=== PATIENT | female | born 1960 | race American Indian/Alaskan Native ===

== ENCOUNTER 2018-08-04 13:10 | Emergency (ER) | payer BC ==
[2018-08-04] MEDS ORDERED: NACL 0.9% 1000 ML 1,000 ML IV ONE (13:21)
[2018-08-04 14:19] LABS: Basophils # (Auto) 0.1 K/mm3 (0.0-0.1); Basophils % (Auto) 0.9 % (0.0-1.8); Eosinophils # (Auto) 0.1 K/mm3 (0.0-0.4); Hematocrit 38.5 % (30.3-42.9); Hemoglobin 12.4 gm/dl (10.1-14.3); Lymphocytes # (Auto) 2.2 K/mm3 (1.2-5.4); Lymphocytes % (Auto) 23.4 % (13.4-35.0); Mean Corpuscular HGB Conc 32 % (30-34); Mean Corpuscular Hemoglobin 28 pg (28-32); Mean Corpuscular Volume 88 fl (79-97); Monocytes # (Auto) 0.6 K/mm3 (0.0-0.8); Platelet Count 296 K/mm3 (140-440); Red Blood Count 4.39 M/mm3 (3.65-5.03); Red Cell Distribution Width 13.9 % (13.2-15.2)
[2018-08-04 14:27] LABS: INR 0.97 (0.87-1.13)
[2018-08-04 14:28] LABS: Partial Thromboplastin Time 33.7 Sec. (24.2-36.6)
[2018-08-04 14:29] LABS: Alanine Aminotransferase 14 units/L (7-56); Albumin 4.2 g/dL (3.9-5); BUN/Creatinine Ratio 13; Blood Urea Nitrogen 12 mg/dL (7-17); Calcium 9.1 mg/dL (8.4-10.2); Hemolysis Index 6; Lipase 34 units/L (13-60)
[2018-08-04] MEDS ORDERED: ULTRAM PO ONE (15:13)
--- NOTE | 2018-08-04 15:41 | Emergency Department Report ---
HPI - General Chief Complaint: GI Bleed Time Seen by Provider: 08/04/18 14:39 - HPI HPI: 58-year-old female presents to the emergency department with a 2-3 day history of some lower abdominal discomfort with some radiation towards the back. The patient also complains of some left hip pain but this is more of a chronic issue for her. She has been seen at [facility] for her hip pain in the past and has received cortisone injections. The patient has some nausea without vomiting and some dysuria. She's been having some diarrhea and therefore took some Pepto-Bismol on Thursday. The next day she started noticing some blackish stools. She denies any fever, vaginal discharge , chest pain or shortness of breath. She denies any significant past medical history. No recent travel or sick contacts at home. ED Past Medical Hx - Past Medical History Previous Medical History?: No - Surgical History Past Surgical History?: Yes Additional Surgical History: anal vaginal fistula repair. tubal ligation. bunion removal - Social History Smoking Status: Never Smoker Substance Use Type: None - Medications Home Medications: Home Medications Medication Instructions Recorded Confirmed Last Taken Type Ibuprofen [Motrin 800 MG tab] 800 mg PO Q12H PRN 08/04/18 08/04/18 Unknown History Sertraline [Zoloft] 50 mg PO DAILY 08/04/18 08/04/18 Unknown History Vit D3-Vit K/Berberine/Hops 1 each PO DAILY 08/04/18 08/04/18 Unknown History [Ostera Tablet] ED Review of Systems ROS: Stated complaint: ABD PAIN Other details as noted in HPI Comment: All other systems reviewed and negative Constitutional: denies: chills, fever Eyes: denies: eye pain, eye discharge, vision change ENT: denies: ear pain, throat pain Respiratory: denies: cough, shortness of breath, wheezing Cardiovascular: denies: chest pain, palpitations Gastrointestinal: abdominal pain, nausea, other (rectal bleeding). denies: vomiting Genitourinary: denies: urgency, dysuria, discharge Musculoskeletal: arthralgia. denies: back pain Skin: denies: rash, lesions Neurological: denies: headache, weakness Physical Exam - Physical Exam Vital Signs: Vital Signs 08/04/18 13:17 Temperature 99.0 F Pulse Rate 98 H Respiratory 18 Rate Blood Pressure 122/78 O2 Sat by Pulse 97 Oximetry Physical Exam: GENERAL: The patient is well-developed well-nourished. HENT: Normocephalic. Atraumatic. Patient has moist mucous membranes. EYES: Extraocular motions are intact. Pupils equal reactive to light bilaterally. NECK: Supple. trachea is midline CHEST/LUNGS: Clear to auscultation. There is no respiratory distress noted. HEART/CARDIOVASCULAR: Regular. There is no tachycardia. There is no murmur. ABDOMEN: Abdomen is soft. lower abdominal tenderness to palpation. no guarding. Patient has normal bowel sounds. There is no abdominal distention. SKIN: Skin is warm and dry. NEURO: The patient is awake, alert, and oriented. The patient is cooperative. The patient has no focal neurologic deficits. The patient has normal speech. MUSCULOSKELETAL: Mild left hip tenderness to palpation. No deformity. There is no limitation range of motion. There is no evidence of acute injury. RECTAL: There is a small nonthrombosed external hemorrhoid. No gross blood. Negative stool on guaiac testing. ED Course Vital Signs 08/04/18 13:17 Temperature 99.0 F Pulse Rate 98 H Respiratory 18 Rate Blood Pressure 122/78 O2 Sat by Pulse 97 Oximetry ED Medical Decision Making - Lab Data Result diagrams: 08/04/18 13:30 08/04/18 13:30 - Radiology Data Radiology results: report reviewed, image reviewed interpreted by me: X-ray left hip does not show any fracture, dislocation or any acute process. EXAM: CT ABDOMEN PELVIS W CON HISTORY: Abd pain TECHNIQUE: Following IV administration of 100 cc of Omnipaque 300 axial helical imaging was performed through the abdomen and pelvis with sagittal and coronal reformatted images obtained. Delayed axial helical imaging was also performed through the abdomen and pelvis. Comparison: None FINDINGS: The lung bases are without infiltrate, pneumothorax or pleural fluid collection. The heart appears to be normal size. The liver, spleen, pancreas, kidneys and adrenal glands are normal in appearance. The gallbladder is moderately distended and is unremarkable in appearance. There is colonic diverticulosis with increased thickness of the wall of the distal descending and proximal sigmoid colon with moderate surrounding inflammatory change consistent with the appearance of diverticulitis. There appears to be a small amount of fluid in the left paracolic gutter. There is no evidence of pneumoperitoneum. There is a moderate amount of stool in the ascending colon. The abdominal aorta is normal caliber. There is atherosclerotic vascular calcification of the aorta and iliac arteries. There is no evidence of pathologic intra-abdominal adenopathy by CT size criteria. The urinary bladder is mildly distended and unremarkable in appearance. The uterus and adnexal are unremarkable in appearance. The bony structures are notable for degenerative facet change in the lower lumbar spine. IMPRESSION: 1. Findings consistent with the appearance of diverticulitis of the distal descending and proximal sigmoid colon. 2. Small amount of free fluid in the left paracolic gutter. 3. Spondylitic change lower lumbar spine. 4. Atherosclerotic vascular calcification aorta and iliac arteries. Transcribed By: ED Dictated By: BEVERLY MASSEY MD Electronically Authenticated By: BEVERLY MASSEY MD Signed Date/Time: 08/04/181801 - Medical Decision Making Patient presents with a complaint of lower abdominal pain and left hip pain. She appears to have some chronic issues with her hips and has had injections done in the right hip through an orthopedist in the past. It is atraumatic. Left hip x-ray does not show any fracture, dislocation or any other acute process. Patient's labs were mostly unremarkable. CT scan of the abdomen and pelvis shows some diverticulitis of the distal descending and proximal sigmoid colon. However, the patient does not have any significant leukocytosis, is afebrile, does not have any tachycardia and does not have a rigid or toxic abdomen. For these reasons I feel that the patient is safe to attempt outpatient treatment first. She was given Levaquin and Flagyl here and will be discharged home on the same. She has had no reaction to tramadol and will get a small prescription for this pain medication as well. Also the patient did not have any signs of any rectal bleeding despite her concerns for dark stool. I think this was related to the Pepto-Bismol that she took. However, She will be given a referral for gastroenterology. She has been encouraged to follow up with her primary care physician and orthopedist. We had a long conversation about signs or symptoms to return to the emergency department, including development of fever, worsening of her abdominal pain, intractable vomiting or if any acute distress. - Differential Diagnosis diverticulosis, diverticulitis, malignancy, osteoarthritis of the hip Critical Care Time: No Critical care attestation.: If time is entered above; I have spent that time in minutes in the direct care of this critically ill patient, excluding procedure time. ED Disposition Clinical Impression: Left hip pain, Vaginal burning Abdominal pain Qualifiers: Abdominal location: lower abdomen, unspecified Qualified Code(s): R10.30 - Lower abdominal pain, unspecified Diverticulitis large intestine Qualifiers: Diverticulitis bleeding: without bleeding Diverticulitis complication: without perforation or abscess Qualified Code(s): K57.32 - Diverticulitis of large intestine without perforation or abscess without bleeding Disposition: TO HOME OR SELFCARE Is pt being admited?: No Condition: Stable Instructions: Diverticulitis (ED), Rectal Bleeding (ED), Diverticulitis Diet ( ED), Arthralgia (ED) Additional Instructions: Please follow-up with your primary care physician in the next few days. I'm getting a referral for a local bank clerk, Dr. Valerio, to follow up regarding your diverticulitis and suspicion of rectal bleeding. Take the antibiotics as prescribed. Return to the emergency department immediately with any development of fever, worsening of your abdominal pain, intractable vomiting , or if any acute distress. I also recommend that you follow-up with your orthopedist regarding her left hip pain. You have been prescribed a medication that is sedating and therefore should not be taken prior to driving, working, and responsible for children and in no way should be mixed with alcohol of any quantity. Referrals: PRIMARY CARE, [Primary Care Provider] - 3-5 Days CHAPINCITO VALERIO MD [Staff Physician] - 3-5 Days Forms: Work/School Release Form(ED) Time of Disposition: 19:50
--- NOTE | 2018-08-04 18:02 | Cat Scan Report ---
FINAL REPORT EXAM: CT ABDOMEN PELVIS W CON HISTORY: Abd pain TECHNIQUE: Following IV administration of 100 cc of Omnipaque 300 axial helical imaging was performed through the abdomen and pelvis with sagittal and coronal reformatted images obtained. Delayed axial helical imaging was also performed through the abdomen and pelvis. Comparison: None FINDINGS: The lung bases are without infiltrate, pneumothorax or pleural fluid collection. The heart appears to be normal size. The liver, spleen, pancreas, kidneys and adrenal glands are normal in appearance. The gallbladder is moderately distended and is unremarkable in appearance. There is colonic diverticulosis with increased thickness of the wall of the distal descending and proximal sigmoid colon with moderate surrounding inflammatory change consistent with the appearance of diverticulitis. There appears to be a small amount of fluid in the left paracolic gutter. There is no evidence of pneumoperitoneum. There is a moderate amount of stool in the ascending colon. The abdominal aorta is normal caliber. There is atherosclerotic vascular calcification of the aorta and iliac arteries. There is no evidence of pathologic intra-abdominal adenopathy by CT size criteria. The urinary bladder is mildly distended and unremarkable in appearance. The uterus and adnexal are unremarkable in appearance. The bony structures are notable for degenerative facet change in the lower lumbar spine. IMPRESSION: 1. Findings consistent with the appearance of diverticulitis of the distal descending and proximal sigmoid colon. 2. Small amount of free fluid in the left paracolic gutter. 3. Spondylitic change lower lumbar spine. 4. Atherosclerotic vascular calcification aorta and iliac arteries.
[2018-08-04] MEDS ORDERED: LEVAQUIN 750MG/150ML 750 MG/150 ML BAG IV ONE (18:13)
[2018-08-04] MEDS ORDERED: FLAGYL PO ONE (18:13)
--- NOTE | 2018-08-04 19:22 | XRay Report ---
FINAL REPORT EXAM: XR HIP 2-3V LT HISTORY: left hip pain TECHNIQUE: Frontal view of the pelvis and both hips and frog-lateral view left hip Comparison: CT abdomen and pelvis also performed today FINDINGS: The bony structures are unremarkable in appearance. The hip joints are maintained. IV contrast is demonstrated in the moderately distended bladder secondary to the recent CT abdomen and pelvis with IV contrast. IMPRESSION: 1. No plain film evidence of bony or soft tissue abnormality.
[2018-08-04] MEDS ORDERED: DIFLUCAN PO ONE (20:48)
[2018-08-04 21:42] VITALS: BP 107/70
== END 2018-08-04 21:57 | disposition home or self-care (01) ==
LOC: ED 13:10
DX: K57.32 Diverticulitis of large intestine without perforation or abscess without bleeding (principal); M25.552 Pain in left hip; N89.8 Other specified noninflammatory disorders of vagina; Z98.51 Tubal ligation status
CPT/HCPCS: 36415; 73502; 74177; 80053; 83690; 85025; 85610; 85730; 86850; 86900; 86901; 93005; 93010; 96361; 96365; 96366; 99285; J1956; J7030; Q9967

== ENCOUNTER 2018-08-26 07:19 | Outpatient (CLI) | payer BC ==
--- NOTE | 2018-08-26 10:17 | Magnetic Resonance Report ---
MRI PELVIS WITH AND WITHOUT CONTRAST INDICATION: Left hip pain. COMPARISON: 08/04/2018 CT. FINDINGS: Multiplanar and multisequence MRI of the pelvis performed before and after 15 mL MultiHance intravenously, in part limited due to patient discomfort/pain with some motion artifact. Some distal descending colon diverticulitis changes as wall thickening may again be present, though not as well appreciated. No evidence of bowel obstruction. Grossly normal bowel, marrow and muscle signal. Normal imaged rectum and the urinary bladder. No significant pelvic free fluid or adenopathy. Normal size uterus with a small 0.6 cm fibroid anteriorly, possibly intramural/submucosal as on sagittal series 5, images 12-13. Another 0.8 cm upper to mid uterine fibroid on the right also questioned on axial image 23, series 11. Normal femoral head contours bilaterally. No marrow edema. Intact articulation. Left hip joint fluid is though slightly more generous relative to the right as on coronal series 3, image 14. CONCLUSION: 1. No acute left hip joint abnormality, though its joint fluid may be slightly more than the right, as described. Please correlate. 2. Other findings as myomatous uterus and descending colon diverticulitis. Thank you for the opportunity to participate in this patient's care.
== END 2018-08-26 07:20 | disposition home or self-care (01) ==
LOC: MRI 07:19
PROVIDERS: ATTEND Nurse Practitioner Family
DX: M25.552 Pain in left hip (principal); K57.32 Diverticulitis of large intestine without perforation or abscess without bleeding; D25.9 Leiomyoma of uterus, unspecified
CPT/HCPCS: 72197; A9577